=== PATIENT | female | born 1980 | race African-American/Black ===

== ENCOUNTER 2017-06-19 09:30 | Emergency (ER) | payer SELFPAY ==
[~2017-06-19] VITALS: Ht 160 cm; Wt 55.0 kg
[~2017-06-19 09:30] MED LIST: MMR.5P SQ; OMEP40CA2 PO; SPRI28TA PO; TETA1INJ4 IM
[2017-06-19 09:33] VITALS: BP 113/73; PULSE 116; RESP 18; TEMP 98.4; O2SAT 99
--- NOTE | 2017-06-19 10:52 | PD ---
HPI . headache Chief Complaint: Headache Time Seen by Provider: 10:38 Travel History International Travel<30 days: No Contact w/Intl Traveler<30days: No Traveled to known affect area: No History of Present Illness HPI This patient presents with chief complaint of headache. Onset was a week ago. She describes pain all over her head but worse in the right temporal area. She states that she was seen at an outside hospital week and had all sorts of tests including a CT scan which were all negative. She states her headache got better but that the headache recurred yesterday as gotten progressively worse since that time. She describes the pain as like a hammer pounding in her head. She rates the pain 10/10. Pain is exacerbated by lights. No relieving factor. The patient was noted to be congested on exam. She states that her headache started before the nasal congestion. PFSH Past Medical History Diminished Hearing: No Immunizations Current: Yes ?: Not LMP: 06/07/17 : 2 Para: 2 Social History Alcohol Use: No Tobacco Use: No Substance Use: No Allergies-Medications (Allergen,Severity, Reaction): Coded Allergies: latex (Unverified Allergy, Severe, RASH, HIVES, 03/28/17) amoxicillin (Unverified Adverse Reaction, Severe, VOMITTING, 03/28/17) Reported Meds & Prescriptions Reported Meds & Active Scripts Active Sprintec 28 (Ethinyl Estradiol/Norgestimate) 1 Tab Tab 1 Tab PO DAILY Omeprazole 40 mg (Omeprazole) 40 Mg Cap 1 Tab PO DAILY Review of Systems Except as stated in HPI: all other systems reviewed are Neg General / Constitutional: No: Fever, Chills Eyes: Positive: Photophobia HENT: Positive: Headaches, Congestion Physical Exam Narrative GENERAL: Awake and alert. SKIN: Warm and dry with no rash or lesions. HEAD: Right temporal tenderness. EYES: Pupils are equal. Extraocular movements are intact. ENT: Nasal congestion. NECK: Supple. RESPIRATORY: Nonlabored respirations. MUSCULOSKELETAL: Atraumatic. NEUROLOGICAL: Nonfocal. Cranial nerves are intact. She is moving all 4 extremities equally. Uafczp-bvos-fbmytn exam is intact. PSYCHIATRIC: Appropriate mood and affect. Data Data Last Documented VS Vital Signs Date Time Temp Pulse Resp B/P (MAP) Pulse Ox O2 Delivery O2 Flow Rate FiO2 06/19/17 11:35 99 18 138/84 (102) 98 Room Air 06/19/17 09:33 98.4 Orders Orders Iv Access Insert/Monitor (06/19/17 10:53) Sodium Chloride 0.9% Flush (Ns Flush) (06/19/17 11:00) Prochlorperazine Inj (Compazine Inj) (06/19/17 11:00) Diphenhydramine Inj (Benadryl Inj) (06/19/17 11:00) Westergren Sedimentation Rate (06/19/17 10:53) Labs Laboratory Tests Test 06/19/17 11:11 Erythrocyte Sedimentation Rate 38 mm/hr MDM Medical Decision Making Medical Screen Exam Complete: Yes Emergency Medical Condition: Yes Differential Diagnosis Differential diagnosis of headache includes but is not limited to migraine, muscle contraction headache, brain tumor, brain bleed Narrative Course This patient presents complaining with headache. It is most intense in the right temporal area. She reports previous workup at an outside hospital including a CT scan. I will not repeat that today. I will check a sedimentation rate. Her headache will be treated with Compazine and Benadryl. MARQUES is improved. ESR 38. Will treat with steroids. Diagnosis Primary Impression: Headache Qualified Codes: R51 - Headache Patient Instructions: Acute Headache (DC), General Instructions Additional Instructions: Follow-up with your doctor later this week. Med/Other Pt SpecificInfo: Prescription(s) given Scripts Qlcfvonxrq-Gsjzafkaifeyf-Flzfffgd (Fioricet) 50-300-40 Mg Cap 1 CAP PO Q4H Y for HEADACHE, #12 CAP 0 Refills Prov: Jenni Dominguez MD 06/19/17 Prednisone (48) 10 mg tab Dose Pack (Prednisone (48) 10 mg tab Dose Pack) 10 Mg Dspk 10 MG PO DIRECTED for Inflammation, #1 DSPK 0 Refills Prov: Jenni Dominguez MD 06/19/17 Disposition: 01 DISCHARGE HOME Condition: Stable Jenni Dominguez MD Jun 19, 2017 10:52
[2017-06-19] MEDS ORDERED: SODIUM CHLORIDE 0.9% FLUSH 10 ML FLUSH IVF PRN (11:00)
[2017-06-19] MEDS ORDERED: PROCHLORPERAZINE INJ 10 MG/2 ML VIAL IVP ONE (11:00)
[2017-06-19] MEDS ORDERED: diphenhydrAMINE HCL 50 MG/ML VIAL IVP ONE (11:00)
[2017-06-19 11:35] VITALS: BP 138/84; PULSE 99; RESP 18; O2SAT 98
[2017-06-19] MEDS ORDERED: PRED10PA2 PO (11:49)
[2017-06-19] MEDS ORDERED: BUTA1CAP PO (11:50)
== END 2017-06-19 11:50 | disposition home or self-care (01) ==
LOC: NEPD 09:30
DX: R51 Headache (principal)
CPT/HCPCS: 85652; 96374; 96375; 99284; J0780; J1200